=== PATIENT | male | born 1975 | race African-American/Black ===

== ENCOUNTER 2024-01-27 11:47 | Emergency (ER) | payer MEDICAID, OTHER ==
[~2024-01-27] VITALS: Ht 188 cm; Wt 90.6 kg
[2024-01-27] MEDS: IBUPROFEN 800 MG TAB PO ONE (15:00)
[2024-01-27 15:52] VITALS: BP 141/89; PULSE 81; RESP 18; TEMP 98.4; O2SAT 98
== END 2024-01-27 15:56 | disposition home or self-care (01) ==
LOC: ER 11:47
DX: S29.012A Strain of muscle and tendon of back wall of thorax, initial encounter (principal); S13.9XXA Sprain of joints and ligaments of unspecified parts of neck, initial encounter; Z88.0 Allergy status to penicillin; V49.9XXA Car occupant (driver) (passenger) injured in unspecified traffic accident, initial encounter; Y93.89 Activity, other specified; Y92.488 Other paved roadways as the place of occurrence of the external cause; Y99.8 Other external cause status
CPT/HCPCS: 72040; 72070